=== PATIENT | female | born 1995 | race Caucasian/White ===

== ENCOUNTER 2021-12-31 14:02 | Emergency (ER) | payer MEDICAID ==
[~2021-12-31] VITALS: Ht 167.6 cm; Wt 64.0 kg
[2021-12-31] MEDS ORDERED: KETOROLAC TROMETHAMINE 60 MG/2 ML VIAL IM ONE (15:30)
[2021-12-31] MEDS ORDERED: METH-812 PO ×3 (15:35→16:27)
[2021-12-31 15:50] VITALS: BP 128/75
== END 2021-12-31 16:50 | disposition home or self-care (01) ==
LOC: EMS 14:07
DX: M54.41 Lumbago with sciatica, right side (principal)
CPT/HCPCS: 96372; 99283; J1885